=== PATIENT | male | born 1970 | race Caucasian/White ===

== ENCOUNTER 2024-12-21 06:24 | Emergency (ER) | payer BC, SELFPAY ==
--- OUTSIDE RECORDS SUMMARY | 2023-07-28 07:00 | XMS_ITS ---
Author Organization [employer] [facility] Address [address] [facility] [address] [place] [address] Care Team Providers Care Manager Transportation Planning Name Role Phone Huseyin Desouza MD Primary Care Provider Ryan Merchant Unavailable [phone] REASON FOR VISIT screening/5ft11 220 Encounters Encounter Location Date Provider Diagnosis [facility] [address] [place] [address] 07/28/2023 Ryan Jay Plan Of Treatment No Information Progress Notes * STANFORDAlberto CARRIONen ADOB: 2 (54 yo M)Acc No.[id number]:07/28/2023 Patient: Cesar RYAN Provider: Carline Jay M.D. :1970 A ge:53 Y S ex:Male Date:07/28/2023 Address:[address] [place], [place] [id number] Pcp:Huseyin Desouza MD Subjective: * Chief Complaints: * 1 . Screening/5ft11 220. * Medical History: Objective: * Vitals: Assessment: Plan: * Treatment: * * Electronic signature of Marilou Jay MD on 12/21/2024 at 07:56 AM CDT Sign off status: Pending * Provider: Carline Jay M.D. Date: 0 07/28/2023 Generated for Printi ng/Faxing/eTransmitting on: 1 07:56 AM CDT
--- NOTE | ~2024-12-21 | CT_ITS ---
EXAMINATION: CT abdomen pelvis w con DATE: 12/21/2024 07:33 INDICATION: Right upper quadrant abdominal pain. TECHNIQUE: Computed tomography (CT) of the abdomen and pelvis was performed with 100 mL Omnipaque 350 intravenous contrast. Automated exposure control and iterative reconstruction technique were employed. The dose-length product was 572.26 mGy-cm. COMPARISON: None. FINDINGS: The visualized portions of the lung bases demonstrate mild atelectasis. No pleural effusion. The heart size is normal. No pericardial effusion. The liver, gallbladder, spleen, pancreas, and right adrenal gland are normal. 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 The kidneys are normal. The prostate is moderately enlarged. There are no dilated loops of bowel. The appendix is not visualized. There are no pathologically enlarged lymph nodes. There is no free intraperitoneal fluid. There is internal fixation of left femur. There is plate and screw fixation of the pubic symphysis. There are changes of arthrodesis of right sacroiliac joint with a screw. There is mild thoracic and lumbar spondylosis. IMPRESSION: 1. No etiology for the patient's symptoms. Reviewed, dictated and finalized at location E.
--- NOTE | ~2024-12-21 | US_ITS ---
EXAMINATION: US abdomen limited DATE: 12/21/2024 08:59 INDICATION: Right upper quadrant abdominal pain TECHNIQUE: Multiple grayscale and Doppler ultrasound images of the abdomen were obtained. COMPARISON: None FINDINGS: The pancreatic head and body are normal in appearance. The pancreatic tail is not visualized. Liver has normal echogenicity and contour, with a smooth surface. No liver lesion identified. No intrahepatic biliary duct dilation suspected. Portal venous flow was seen in the hepatopetal, normal direction and has normal Doppler waveform. The gallbladder is normal in appearance. There is no cholelithiasis. The common bile duct measures 5 mm, which is normal. Sonographic Ricks sign was reported as negative by the pile driver engineer.Visualized portion of the right kidney demonstrates normal contour and echogenicity with no hydronephrosis. Visualized portion of the inferior vena cava is normal. IMPRESSION: 1. Normal right upper quadrant ultrasound. Reviewed, dictated and finalized at location A.
--- OUTSIDE RECORDS SUMMARY | 2024-12-21 06:26 | XMS_ITS | Patient Health Record ---
Author Organization [employer] Address [address] [facility]. [address] [place] [address] Care Team Providers Care Pig Machine Supervisor Name Role Phone Huseyin Desouza MD Primary Care Provider Unavailabl e Reason For Referral No Information Medications Medication SIG (Take, Route, Fr equency, Duration) Notes Start Date End Date Status Suflave 178.7 GM ML Orally twice a da y; Duration: 1 days 06/09/2023 Active Plan Of Treatment No Information Insurance Providers Payer Name Payer Address Payer Phone Subscriber Number Group Number Insured Name Patient Relationship to Insured Coverage Start Date Coverage End Date Blue Access Choice PPO [id number] [address] [place] [address] [id number] Cesar Menendez Self - patient is the insured
--- OUTSIDE RECORDS SUMMARY | 2024-12-21 06:26 | XMS_ITS | Clinical Summary ---
Author Organization [facility] Address [address] [place] [address] Phone Care Team Providers Care Documentation Analyst Name Role Phone Provider, Unknown Primary Care Provider Unavaila ble Allergies No known active allergies Medications lisinopril-hyd roCHLOROthiazi de (PRINZIDE, ZESTORETIC) 10-12.5 MG Tablet Take 1 Tab by mouth daily. 4 06/01/19 19 Active omeprazole (PRILOSEC) 40 MG CAPSULE DELAYED RELEASE TAKE 1 CAPSULE BY MOUTH EVERY DAY 4 05/05/19 19 Active DICLOFENAC SODIUM OP Place in affected eye(s). Active Cholecalcifero l (VITAMIN D PO) Take by mouth. Activ e Cyanocobalamin (VITAMIN B-12 PO) Take by mouth. Activ e Loratadine (CLARITIN PO) Take by mouth. A ctive KRILL OIL PO Take by mouth. Ac tive Aspirin 81 MG Tablet Take 81 mg by mouth daily. Active tadalafil (CIALIS) 10 MG Tablet Take 10 mg by mouth as needed. Active testosterone cypionate (DEPO-TESTOSTE FABIÁN) 200 MG/ML Solution INJECT 1 ML INTRAMUSCULARLY ONCE WEEKLY 0 05/17/19 19 Active pantoprazole (Protonix) 40 MG Tablet Delayed Response Take 40 mg by mouth daily. Active Ascorbic Acid (VITAMIN C PO) Take by mouth. Active Active Problems No known active problems Social History Tobacco Use Types Packs/Day Years Used Date Smoking Tobacco: Never Smokeless Tobacco: Never Tobacco Cessation:Counseling Given: Not Answered Alcohol Use Standard Drinks/Week Comments Yes 0 (1 standard drink = 0.6 oz pur e alcohol) AUDIT-C Answer Date Recorded Frequency of Alcohol Consumption Never 06/11/2018 Average Number of Drinks Not on file 019 Frequency of Binge Drinking Not on file 05/24 Sexually Active Control Partners Comments Yes Sex and Gender Information Value Date Recorded Sex Assigned at Not on file Legal Sex Male 7:33 PM CDT Gender Identity Not on file Sexual Orientation Not on file Last Filed Vital Signs Vital Sign Reading Time Taken Comments Blood Pressure 136/82 11/14/2023 8:46 AM CDT Pulse 95 11/14/2023 8:46 AM CDT Temperature 37.2 C (99 F) 11/14/2023 8:46 AM CDT Respiratory Rate 14 11/14/2023 8:46 AM CDT Oxygen Saturation 98% 11/14/2023 8:46 AM CDT Inhaled Oxygen Concentration - - Weight 95.3 kg (210 lb) 06/11/2018 11:56 AM CDT Height - - Body Mass Index - - Plan of Treatment Health Maintenance Due Date Last Done Comments Hepatitis C Virus (HCV) Screening 1970 Hepatitis B Immunization (1 of 3 - 19+ 3-dose series) 05/02/1990 Cologuard 05/02/2016 Colonoscopy 05/02/2016 Colorectal Cancer Screening 05/02/2016 Immunochemical Fecal Occult Blood 05/02/2016 Pneumococcal Immunization (50+ years) (1 of 1 - PCV) 05/02/2021 Zoster Immunization (1 of 2) 05/02/2021 Influenza Immunization (#1) 2024 10/0 04/2022, 11/22/2019, 12/02/2015, Additional history exists SARS-COV-2 Immunization ( season) 2024 01/13/2023, 01/11/2021, 05/09/2020, Additional history exists Respiratory Syncytial Virus (RSV) Immunization (Adult) (1 - 1-dose 75+ series) 05/02/2046 DTaP/Tdap/Td Immunization Discontinued 05/12/2021 TdaP Immunization Completed 05/12/2021 Human Papillomavirus (HPV) Immunization Aged Out No longer eligible based on patient's age to complete this topic Meningococcal Immunization (ACWY) Aged Out No longer eligible based on patient's age to complete this topic Rotavirus Immunization Aged Out No lo nger eligible based on patient's age to complete this topic Insurance [facility] Care Teams Documentation Analyst Relationship Specialty Start Date End Date Provider, Unknown UNKNOWN PCP - General 06/11/18
[2024-12-21 06:27] VITALS: BP 158/95; PULSE 79; RESP 18; TEMP 36.8; O2SAT 97
[2024-12-21 06:30] VITALS: BP 158/95; PULSE 88; RESP 18; TEMP 36.8; O2SAT 95
[2024-12-21 06:49] LABS: Hematocrit 53.6 % (42.0-52.0); Hemoglobin 18.3 g/dL (14.0-18.0); Immature Granulocyte Percent A 0.5 % (0-0.5); Lymphocytes Absolute Auto 1.66 K/mm3 (0.9-3.2); Mean Corpuscular HGB Conc 34.1 g/dl (32-36); Mean Corpuscular Hemoglobin 30.0 pg (26-34); Mean Corpuscular Volume 88.0 fl (80-100); Nucleated Red Blood Cells Absolute Auto 0.000 K/mm3 (0.0-0.012); Nucleated Red Blood Cells Perc 0.0 % (0.0-0.2); Platelet Count Result 217 k/mm3 (150-375); Red Blood Count 6.09 M/mm3 (4.6-6.20); White Blood Count 6.3 K/mm3 (4.5-10.0)
[2024-12-21 06:54] LABS: Add Urine Microscopic? YES; Appearance Urine Clear (Clear); Glucose Urine UA Negative (Negative); Leukocyte Esterase Ur Negative LEU/UL (Negative); Nitrate Urine Negative (Negative); Non Pathogenic Casts 0-2; Specific Grav Ur 1.024 (1.001-1.035)
[2024-12-21 06:57] LABS: Alanine Aminotransferase 49 U/L (6-50); Albumin Level 4.5 g/dL (3.5-5.1); Alkaline Phosphatase 69 U/L (38-126); Anion Gap 6 mmol/L (4-12); Aspartate Amino Transferase 45 U/L (17-59); Bilirubin,Total 0.9 mg/dL (0.2-1.3); Blood Urea Nitrogen 22 mg/dL (9-20); Calcium 9.2 mg/dL (8.4-10.2); Carbon Dioxide 29 mmol/L (22-30); Chloride 98 mmol/L (98-107); Estimated CRCL calculation 91 ml/min; Estimated Glomerular Filt Rate > 60; Glucose 114 mg/dL (65-110); Lipase 265 U/L (23-300); Potassium 3.9 mmol/L (3.4-5.0); Sodium 133 mmol/L (137-145); Total Protein 7.8 g/dL (6.3-8.2)
[2024-12-21 07:01] VITALS: BP 159/99; PULSE 72; RESP 14; O2SAT 96
[2024-12-21 07:39] VITALS: BP 164/93; PULSE 79; PULSE 86; RESP 16; RESP 17; O2SAT 94
--- OUTSIDE RECORDS SUMMARY | 2024-12-21 07:56 | XMS_ITS | Encounter Summary ---
Author Organization [facility] Address [address] [place] [address] Care Team Providers Care Sanitary Engineer Name Role Phone Taran Mock MD Primary Care Provider [phone] Huseyin Desouza MD Primary Care Provider [phone] Encounter Details Date Type Department Care Team (Late st Contact Info) Description 05/12/2021 Ophth Exam [facility] [address] [facility], [place] [id number] [phone] Jing Shaw MD [facility] [id number] [phone] Social History Tobacco Use Types Packs/Day Years Used Date Smoking Tobacco: Never Assessed AUDIT-C Answer Date Recorded Q1: How often do you have a drink containing alc ohol? 2-3 times a week 05/12/2021 Q2: How many drinks containi ng alcohol do you have on a typical day when you are drinking? 5 or 6 05/12/2021 Frequency of Binge Drinking Not on file 04/23 Sex and Gender Information Value Date Recorded Sex Assigned at Not on file Legal Sex Male 3:37 PM CDT Gender Identity Not on file Sexual Orientation Not on file documented as of this encounter Functional Status * Functional and Cognitive Status Question Answer Date of Assessment Author Is person deaf or have ev us hearing difficulty? No 05/13/2021 7:10 AM CDT Matthew Ochoa RN Is person blind or have seri ous difficulty seeing? No 05/13/2021 7:10 AM Matthew Jessica RN Does person have serious difficulty walking/climbing stairs? No 05/13/2021 7:10 AM Matthew Jessica RN Does person have difficulty dressing/bathing? No 05/13/2021 7:10 AM Matthew Jessica RN Does person have difficulty doing errands alone? No 05/13/2021 7:10 AM Matthew Jessica RN Does person have difficulty concentrating/remembering/making decisions? No 05/13/2021 7:10 AM Matthew Jessica RN * Question Answer Date of Assessment Author Q1: How often do you have a drink containing alcohol? 2-3 times a week 05/12/2021 8:08 PM Geneva Quintero RN Q2: How many drinks containing alcohol do you have on a typical day when you are drinking? 5 or 6 05/12/2021 8:08 PM Geneva Quintero RN documented as of this encounter Plan of Treatment Not on file documented as of this encounter Visit Diagnoses Not on filedocumented in this encounter Care Teams Sanitary Engineer Relationship Specialty Start Date End Date Taran Mock MD [address] [place] [address] PCP - General Family Medicine 06/13/21 02/18/23 Huseyin Desouza MD [address] [place] [address] PCP - General Family Medicine 02/19/23 documented as of this encounter
--- OUTSIDE RECORDS SUMMARY | 2024-12-21 07:56 | XMS_ITS | Clinical Summary ---
Author Organization [facility] Address [address] [facility] [place] [address] Care Team Providers Care Cost Accounting Clerk Name Role Phone Huseyin Desouza MD Primary Care Provider [phone] Source Comments [facility],non-owned Affiliates and Associated Physician Practices is amultiple site organization consisting of ambulatory clinics and hospital sitesin [place], [place], [place] and [place]. This disclosure is being madepursuant to the Care Everywhere program and may not contain all information available regarding this patient. Last updated 17.[facility] Allergies No known active allergies Medications * Be aware that medications may not be up to date on this document. Alwaysverify current medications with the patient. lisinopril-hydr oCHLOROthiazide (PRINZIDE; ZESTORETIC) 10-12.5 MG tablet Take 1 (one) tablet by mouth once daily Active loratadine (CLARITIN) 10 MG tablet Take 1 (one) tablet by mouth once daily Active aspirin (ASPIRIN) 81 MG chew tablet Take 1 (one) tablet by mouth once daily Active testosterone cypionate (DEPO-TESTOSTER ONE) 200 MG/ML injection Inject 1 mL into muscle every Wednesday06/21/2021 Active vitamin D3 (CHOLECALCIFERO L) 10 MCG (400 UNIT) tablet Active pantoprazole EC (PROTONIX) 40 MG tablet Take 1 (one) tablet by mouth 2 times daily 07/07/2021 Active B-D 3CC LUER-JACQUES SYR 23GX1 23G X 1 3 ML MISC TAKE 1 SYRINGE TWICE A WEEK FOR 12 WEEK(S) 05/07/2021 Active sildenafil (REVATIO) 20 MG tablet TAKE UP TO 5 TABLETS DAILY 1 HOUR PRIOR TO SEXUAL INTERCOURSE. 02/27/2021 Active Acetaminophen Extra Strength 500 MG TABS as needed 11/26/2021 Active Ascorbic Acid 1000 MG Take 1 (one) tablet by mouth once daily Active ALPRAZolam (Xanax) 0.5 MG tablet Take 1 (one) tablet by mouth 2 times daily as needed for Anxiety or Insomnia 01/30/2022 Active HYDROcodone-dedrick taminophen ([place]) 5-325 MG tabletIndicatio ns:History of recent fall Take 1 (one) tablet by mouth every 6 hours as needed for Pain 20 tablet 01/17/2024 Active polyethylene glycol 3350 (Miralax) 17 GM/SCOOP powder Take 17 (seventeen) g by mouth once daily 238 g 01/17/2024 Active docusate sodium (Colace) 100 MG capsule Take 1 (one) capsule by mouth once daily 01/17/2024 Active Active Problems Problem Noted Date Diagnosed Date Orbital wall fracture 05/19/2021 ABLA (acute blood loss anemia) 05/15/2021 Trauma 05/12/2021 Open dislocation of left wrist 05/12/2021 Contusion of both lungs 05/12/2021 Other fracture of left femur , initial encounter for closed fracture 05/12/2021 Unspecified injury of ulnar artery at forearm level, left arm, initial encounter 05/12/2021 History of recent fall 04/22/2021 Overview (08/14/2021): Trauma/ fall from 25 ft foot lift Closed displaced subtrochanteric fracture of lef t femur Traumatic separation of pubic symphysis Open wound of right knee Dislocation of left wrist Type III open fracture of di stal end of left radius and ulna Complete disruption of pelvic ring Abscess of bursa of left wrist Retained orthopedic hardware Immunizations Immunization Administration Dates Next Due TDAP (7yrs+) 05/12/2021 Social History Tobacco Use Types Packs/Day Years Used Date Smoking Tobacco: Former Cigarettes 0.5 13 1 986 - 1998 Smokeless Tobacco: Never Tobacco Cessation:Counseling Given: Not Answered Alcohol Use Standard Drinks/Week Comments Yes 4 (1 standard drink = 0.6 oz pur e alcohol) 2-3x per week AUDIT-C Answer Date Recorded Q1: How often do you have a drink containing alc ohol? 2-3 times a week 01/17/2024 Q2: How many drinks containi ng alcohol do you have on a typical day when you are drinking? 3 or 4 01/17/2024 Q3: How often do you have si x or more drinks on one occasion? Never 01/17/2024 PHQ-2 Answer Date Recorded Patient Health Questionnaire-2 Score 1 12/07/2023 Sex and Gender Information Value Date Recorded Sex Assigned at Not on file Legal Sex Male 3:37 PM CDT Gender Identity Not on file Sexual Orientation Not on file Last Filed Vital Signs Vital Sign Reading Time Taken Comments Blood Pressure 125/90 01/17/2024 9:38 AM SYSTEMS DEVELOPMENT CONSULTANT Pulse 82 01/17/2024 9:38 AM SYSTEMS DEVELOPMENT CONSULTANT Temperature 36 C (96.8 F) 01/17/2024 9:05 AM SYSTEMS DEVELOPMENT CONSULTANT Respiratory Rate 9 01/17/2024 9:38 AM SYSTEMS DEVELOPMENT CONSULTANT Oxygen Saturation 94% 01/17/2024 9:38 AM SYSTEMS DEVELOPMENT CONSULTANT Inhaled Oxygen Concentration 100% 06/08/2021 9 :20 AM CDT Weight 99.2 kg (218 lb 12.8 oz) 01/17/2024 5:44 AM SYSTEMS DEVELOPMENT CONSULTANT Height 180.3 cm (5' 11) 01/17/2024 5:44 AM SYSTEMS DEVELOPMENT CONSULTANT Body Mass Index 30.52 01/17/2024 5:44 AM SYSTEMS DEVELOPMENT CONSULTANT Plan of Treatment Health Maintenance Due Date Last Done Comments COLOGUARD (AGES 45-75) - COLON CA SCREENING 1970 COLON MONITORING 1971 COLONOSCOPY - COLON CA SCREENING 1971 CT COLONOGRAPHY - COLON CA SCREENING 1970 Colorectal Cancer Screening 1971 FIT - COLON CA SCREENING 1971 FLEX SIG - COLON CA SCREENING 1971 LIPID TESTING 1971 HIV SCREENING 05/02/1986 HEPATITIS C SCREENING 04/28/1989 HEPATITIS B VACCINE (1 of 3 - 19+ 3-dose series) 05/02/1990 PNEUMOCOCCAL VACCINE 50+ (1 of 1 - PCV) 05/02/2021 ZOSTER VACCINE (1 of 2) 05/02/2021 DEPRESSION SCREENING 02/23/2024 04/27/2023, 07/29/19 22 COVID-19 VACCINE (5 - 2024-26 season) 2024 01/13/2023, 01/11/2021, 05/09/2020, Additional history exists INFLUENZA VACCINE (#1) 2024 3, 11/22/2019, 12/02/2015, Additional history exists SCREENING FOR DIABETES 02/19/2026 3, 07/28/2021, 06/13/2021, Additional history exists DTAP/TDAP/TD VACCINES (2 - Td or Tdap) 05/13/2031 05/12/2021 HIB VACCINE Aged Out No longer eligi ble based on patient's age to complete this topic HPV VACCINE Aged Out No longer eligi ble based on patient's age to complete this topic MENINGOCOCCAL (Group B) VACCINE SHARED DECISION-MAKING Aged Out No longer eligible based on patient's age to complete this topic MENINGOCOCCAL GROUPS A/C/Y/W VACCINE Aged Out No longer eligible based on patient's age to complete this topic Medical Devices Implanted Type Area Accounting Representative Device Identifier Shelf Expiration Date Model / Serial / Lot Graft Tissue Avance Nrv 70mm Algrf 4-5mm Implanted:Qty: 1 on 05/13/2021 by Kamla Bryant MD at [facility] Left: Wrist [employer] Inc 05/23/2023 [id number] / / Prtc 7mm Axoguard Tissue 40mm Prcn Xclr Implanted:Qty: 1 on 05/13/2021 by Kamla Bryant MD at [facility] Left: Wrist [employer] 12/14/2021 [id number] / / Nail Im 9mm 42cm Versanail Fem Troch Lt Implanted:Qty: 1 on 05/14/2021 by Mark Morris DO at [facility] Left: Femur [employer]ena [employer] 09/22/2022 0 / / [id number] Screw 6.5mm 90mm Ft Slf-Tap Sld Drv End Implanted:Qty: 1 on 05/14/2021 by Mark Morris DO at [facility] Left: Femur [employer] [id number] / / Screw 6.5mm 100mm Ft Slf-Tap Sld Drv End Implanted:Qty: 1 on 05/14/2021 by Mark Morris, at [facility] Left: Femur [employer] [id number] / / Screw 4.5mm 40mm Oblq Ft Slf-Tap Sld 2 Implanted:Qty: 1 on 05/14/2021 by Mark Morris, at [facility] Left: Femur [employer] [id number] / / Screw 4.5mm 46mm Oblq Ft Slf-Tap Sld 2 Implanted:Qty: 1 on 05/14/2021 by Mark Morris DO at [facility] Left: Femur [employer] [id number] / / Screw 4.5mm 50mm Ft Sld Slf-Tap Hip Fem Implanted:Qty: 1 on 05/14/2021 by Mark Morris DO at [facility] Left: Femur [employer] [id number] / / 6 Hole Dcp 3.5mm Plate 78mm Implanted:Qty: 1 on 05/14/2021 by Mark Morris DO at [facility] Left: Pelvis Synthes Usa 02.100.016 / / Screw 3.5mm 6mm 32mm 2.5mm Ft Slf-Tap Implanted:Qty: 2 on 05/14/2021 by Mark Morris DO at [facility] Left: Pelvis [employer] Usa 204.832 / / Screw 3.5mm 6mm 45mm Ft Cortx Slf-Tap Sm Implanted:Qty: 1 on 05/14/2021 by Mark Morris DO at [facility] Left: Pelvis [employer] Usa 204.845 / / Screw 3.5mm 6mm 55mm 2.5mm Ft Slf-Tap Implanted:Qty: 2 on 05/14/2021 by Mark Morris DO at [facility] Left: Pelvis [employer] Usa 204.855 / / Screw 3.5mm 6mm 65mm 2.5mm Ft Slf-Tap Implanted:Qty: 1 on 05/14/2021 by Mark Morris DO at [facility] Left: Pelvis [employer] Usa 204.865 / / Screw 7.3mm 8.2mm 2.9mm 90mm P/T Rvrs Implanted:Qty: 1 on 05/14/2021 by Mark Morris DO at [facility] Left: Pelvis [employer] Usa 209.890 / / Mtrx Tissue Micromatrix Prcn Bldr - [id number] Implanted:Qty: 1 on 06/12/2021 by Mark Morris DO at [facility] Left: Wrist [employer]Cell Inc 06/21/2022 [id number] / [id number] / [id number] Graft Prcn 5.9x3.9in Xenmatrix Ab Rect Implanted:Qty: 1 on 06/12/2021 by Mark Morris DO at [facility] Left: Wrist [employer]ol Inc 04/21/2022 [id number] / / [id number] Cutal Wound Matrix 3-Layer Implanted:Qty: 1 on 06/12/2021 by Mark Morris DO at [facility] Left: Wrist [employer] Inc 12/22/2022 [id number] / [id number] / [id number] Gft Skn Cytal L10 Cm X W7 Cm Fnstrt Mtrx Implanted:Qty: 1 on 06/12/2021 by Mark Morris DO at [facility] Left: Wrist Integra [employer]iences 09/21/2022 [id number] / / [id number] Screw 4.5mm 8mm 50mm Cortx Slf-Tap Lg Implanted:Qty: 1 on 03/05/2023 by Mark Morris DO at [facility] Left: Femur Synthes Usa 214.850 / / Screw 4.5mm 8mm 52mm Cortx Slf-Tap Lg Implanted:Qty: 1 on 03/05/2023 by Mark Morris DO at [facility] Left: Femur [employer]ynthes Usa 214.852 / / Explanted Type Area Accounting Representative Device Identifier Shelf Expiration Date Model / Serial / Lot Gd Pin Orth 14in 3.2mm [address] Versanail Explanted:Qty: 1 on 05/14/2021 by Mark Morris DO at [facility] Left: Femur [employer] [id number] DUPLICATE / / Description:SUPPLY NOT AN IM PLANT Wire K 2mm 228mm Troc Pnt Ss Prlc Plate Explanted:Qty: 1 on 05/14/2021 by Mark Morris, DO at [facility] Left: Pelvis [employer] [id number] / / Wire K 1.6mm 150mm Troc Pnt Ss Fx Strl Explanted:Qty: 2 on 06/04/2021 by Mark Morris, DO at [facility] Left: Wrist [employer] [id number] / / Bar Extfix 100mm 6mm Jtx Cfbr Nonster Implanted:Qty: 2 on 05/12/2021 by Mark Morris, DO at [facility] Explanted:Qty: 2 on 08/18/2021 by Mark Morris, DO at [facility] Left: Wrist [employer] [id number] / / Clamp Extfix Jtx 6mm 4mm Mini Mri Safe Implanted:Qty: 3 on 05/12/2021 by Mark oMrris, DO at [facility] Explanted:Qty: 3 on 08/18/2021 by Mark Morris, DO at [facility] Left: Wrist [employer] [id number] / / Clamp Extfix 6/10.5mm Jtx 6mm Std Bar To Implanted:Qty: 1 on 05/12/2021 by Mark Morris, DO at [facility] Explanted:Qty: 1 on 08/18/2021 by Mark Morris, DO at [facility] Left: Wrist [employer] [id number] / / Bar Extfix 150mm 6mm Jtx Cfbr Nonster Implanted:Qty: 1 on 05/12/2021 by Mark Morris DO at [facility] Explanted:Qty: 1 on 08/18/2021 by Mark Morris, DO at [facility] Left: Wrist [employer] [id number] / / Bar Extfix 225mm 6mm Jtx Cfbr Nonster Implanted:Qty: 1 on 05/12/2021 by Mark Morris DO at [facility] Explanted:Qty: 1 on 08/18/2021 by Mark Morris, DO at [facility] Left: Wrist [employer] [id number] / / Pin Hlf 15mm 3mm Jtx Shrt Ti Ntrd Extfix Implanted:Qty: 2 on 05/12/2021 by Mark Morris, DO at [facility] Explanted:Qty: 2 on 08/18/2021 by Mark Morris DO at [facility] Left: Wrist [employer] [id number] / / Pin Hlf 25mm 3mm Jtx Shrt Orth Ti Ntrd Implanted:Qty: 2 on 05/12/2021 by Mark Morris DO at [facility] Explanted:Qty: 2 on 08/18/2021 by Mark Morris DO at [facility] Left: Wrist [employer] [id number] / / Procedures Procedure Name Priority Date/Time Associated Diagnosis Comments BASIC METABOLIC PANEL (CALCIUM TOTAL) Routine 02/19/2023 10:20 AM SYSTEMS DEVELOPMENT CONSULTANT Retained orthopedic hardware from Last 3 Months or Most Recently Relevant to Health Maintenance Results * (ABNORMAL) BASIC METABOLIC PANEL (CALCIUM TOTAL) (02/19/2023 10:20 AM SYSTEMS DEVELOPMENT CONSULTANT) BUN 14 7 - 26 mg/dL 02/19/2023 11:05 AM [facility] Creatinine 1.05 0.71 - 1.16 mg/dL 02/19/2023 11:05 AM [facility] Sodium 136 136 - 145 mmol/L 02/19/2023 11:05 AM [facility] Potassium 4.0 3.5 - 4.5 mmol/L 02/19/2023 11:05 AM [facility] Chloride 100 98 - 107 mmol/L 02/19/2023 11:05 AM [facility] CO2 25 22 - 29 mmol/L 02/19/2023 11:05 AM [facility] Glucose 98 70 - 115 mg/dL 02/19/2023 11:05 AM [facility] Calcium 9.3 8.4 - 10.2 mg/dL 02/19/2023 11:05 AM [facility] Anion Gap 11 6 - 16 02/19/2023 11:05 AM [facility] BUN/Creatinine Ratio 13 7 - 23 02/19/2023 11:05 AM [facility] Osmolality Calculated 282 275 - 295 mOsm/kg 02/19/2023 11:05 AM [facility] eGFR by CKD-EPI 86(L) >=90 mL/min/1.7 3 m2 02/19/2023 11:05 AM [facility] Blood BLOOD SPECIMEN / Unknown Lab Venipuncture / Unknown 02/19/2023 10:20 AM SYSTEMS DEVELOPMENT CONSULTANT 02/19/2023 10:34 AM [facility] Mark Morris DO LAB - CHEMISTRY ORDERABLES Fin al Result [facility] [address] [place] [address] [phone] from Last 3 Months or Most Recently Relevant to Health Maintenance Insurance [employer] * Guarantor: [id number] Account Type Relation to Patient Date of Phone Billing Address Workers Comp Employer Advance Directives * Full Code (Latest Code Status on File) Date Activated Date Inactivated Comments 05/12/2021 9:51 PM 06/16/2021 6:23 PM Care Teams Cost Accounting Clerk Relationship Specialty Start Date End Date Huseyin Desouza MD [address] [place] [address] PCP - General Family Medicine 02/19/23
--- OUTSIDE RECORDS SUMMARY | 2024-12-21 07:56 | XMS_ITS | Clinical Summary ---
Author Organization [facility] Address [facility] [place] [address] Care Team Providers Care Dipper And Drier Name Role Phone Taran Mock MD Primary Care Provider [phone] Allergies No known active allergies Medications aspirin 81 mg chewable tabletIndications: Pain,prevention of thrombosis Take 81 mg by mouth every morning Active cholecalciferol (VITAMIN D-3) 400 unit capsuleIndications :supplement Take 400 Units by mouth every morning Active krill oil 500 mg capsule Take by mouth Active lisinopril-hydroCH LOROthiazide (ZESTORETIC) 10-12.5 mg per tabletIndications: hypertension Take 1 tablet by mouth every morning 9 Active loratadine (CLARITIN) 10 mg tabletIndications: Allergic Rhinitis Take 10 mg by mouth every morning Active sildenafiL, pulm.hypertension, (REVATIO) 20 mg tabletIndications: ED. Take 20 mg by mouth as needed 2 Active BD Luer-Caitlin Syringe 3 mL 23 x 1 syringe TAKE 1 SYRINGE TWICE A WEEK FOR 12 WEEK(S) 2 Active tadalafiL (ADCIRCA) 10 mg tabletIndications: Erectile Dysfunction Take 10 mg by mouth as needed Active testosterone cypionate (DEPO-TESTOTERONE) 200 mg/mL injectionIndicatio ns:Androgen Deficiency Inject 200 mg into the muscle as instructed once a week Every Wednesday 9 Active calcium carbonate (CALCIUM 600 ORAL)Indications:S upplement Take 600 mg by mouth every morning Active oxyCODONE (ROXICODONE) 5 mg immediate release tabletIndications: Pain Take 1 tablet (5 mg total) by mouth every 4 (four) hours as needed (breakthrough pain) 20 tablet 2 Active acetaminophen 500 mg capsuleIndications :Pain Take 2 capsules (1,000 mg total) by mouth every 6 (six) hours as needed for pain 60 tablet 2 Active ondansetron ODT (ZOFRAN-ODT) 4 mg disintegrating tabletIndications: nausea and vomiting Take 1 tablet (4 mg total) by mouth every 6 (six) hours as needed for nausea or vomiting 20 tablet 2 Active ibuprofen (ADVIL,MOTRIN) 800 mg tablet Take 1 tablet (800 mg total) by mouth every 6 (six) hours as needed for pain 60 tablet 2 Active Active Problems Problem Noted Date Diagnosed Date Ulnar nerve damage, left, initial encounter 05/2021 Abscess of bursa of left wrist 11/17/2021 Complete disruption of pelvic ring 11/17/2021 Open wound of right knee 11/17/2021 Retained orthopedic hardware 11/17/2021 Traumatic separation of pubic symphysis 11/18/19 Type III open fracture of di stal end of left radius and ulna 11/17/2021 Injury of left ulnar nerve 10/15/2021 Overview (10/15/2021): Added automatically from request for surgery [id number] Bone infection of knee 06/16/2021 Orbital wall fracture 05/19/2021 ABLA (acute blood loss anemia) 05/15/2021 Contusion of both lungs 05/12/2021 Open dislocation of left wrist 05/12/2021 Other fracture of left femur , initial encounter for closed fracture 05/12/2021 Trauma 05/12/2021 Unspecified injury of ulnar artery at forearm level, left arm, initial encounter 05/12/2021 Immunizations Immunization Administration Dates Next Due Influenza, Quadrivalent, Split, Intramuscular Influenza, Quadrivalent, Spl it, Preservative Free, Intramuscular 11/22/2019 Influenza, Trivalent, IM (MDV) 12/05/2014 Tdap 05/12/2021 Surgical History Surgery Date Site/Laterality Comments APPENDECTOMY BICEPS TENDON REPAIR Right FRACTURE SURGERY PORT PLACEMENT CHEST >5 YEARS 05/29/2021 N/A Medical History Medical History Date Comments Hard to intubate Lip got folded over with ETT. Later used a size 5 LMA which caused sore throat. After switching to size 4 LMA no trouble.Patient easily intubated with video laryngoscopy, obtaining a grade 1 view. Per patient he was previously marked difficult due to a damaged lip after intubation and a severe sore throat when using an LMA 5. He denies any history of being difficult to secure airway. GERD (gastroesophageal reflux disease) Family History Medical History Relation Name Comments Heart failure Father Anesthesia problems Neg Hx Relation Name Status Comments Father Social History Tobacco Use Types Packs/Day Years Used Date Smoking Tobacco: Former Cigarettes Q uit: 1998 Passive Smoke Exposure: Past Smokeless Tobacco: Never Tobacco Cessation:Counseling Given: Not Answered AUDIT-C Answer Date Recorded Q1: How often do you have a drink containing alcohol? 4 or more times a week 11/25/2021 Q2: How many drinks containi ng alcohol do you have on a typical day when you are drinking? 1 or 2 Q3: How often do you have si x or more drinks on one occasion? 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 Gender Identity Not on file Sexual Orientation Not on file Obstetrics History Last Filed Vital Signs Vital Sign Reading Time Taken Comments Blood Pressure 155/92 11/26/2021 8:30 AM CDT Pulse 89 11/26/2021 8:30 AM CDT Temperature 36.7 C (98.1 F) 11/26/2021 8:30 AM CDT Respiratory Rate 18 11/26/2021 8:30 AM CDT Oxygen Saturation 100% 11/26/2021 8:30 AM CDT Inhaled Oxygen Concentration - - Weight 98.9 kg (218 lb) 11/25/2021 7:52 AM CDT Height 180.3 cm (5' 11) 11/25/2021 7:52 AM CDT Body Mass Index 30.4 11/25/2021 7:52 AM CDT Plan of Treatment Health Maintenance Due Date Last Done Comments Colon Cancer Screening-Colonoscopy 1971 Depression Screening 1971 Hepatitis C Screening 1971 Prostate Cancer Screening-PSA 1971 Hepatitis B Screening 05/02/1989 Regular Well Visit/Exam 18-64 05/02/1989 Zoster Vaccine (1 of 2) 05/02/2021 Covid-19 Vaccine (4 - 2024-2 6 season) 2024 01/11/2021, 05/09/2020, 04/18/2020 Influenza Vaccine (#1) 2024 , 12/02/2015, 12/05/2014 DTaP/Tdap/Td Vaccine (2 - Td or Tdap) 05/13/2031 05/12/2021 Pneumococcal vaccine <65 Aged Out No longer eligible based on patient's age to complete this topic Insurance [employer] Advance Directives For more information, please contact: [phone] * Full Code (Latest Code Status on File) Date Activated Date Inactivated Comments 11/25/2021 6:49 PM 11/26/2021 3:11 PM Care Teams Dipper And Drier Relationship Specialty Start Date End Date Taran Mock MD [address] [place] [address] PCP - General Family Medicine 09/22/21
--- OUTSIDE RECORDS SUMMARY | 2024-12-21 07:56 | XMS_ITS | Encounter Summary ---
Author Organization [facility] Address [address] [place] [address] Care Team Providers Care Military Communications Specialist Name Role Phone Taran Mock MD Primary Care Provider [phone] Huseyin Desouza MD Primary Care Provider [phone] Encounter Details Date Type Department Care Team (Late st Contact Info) Description 05/13/2021 Ophth Exam [facility] [address] [place] [address], [place] [address] Kobe Lawrence MD [address] [place] [address] [place] [address] Social History Tobacco Use Types Packs/Day Years Used Date Smoking Tobacco: Never Smokeless Tobacco: Never AUDIT-C Answer Date Recorded Q1: How often [...] doing errands alone? No 05/13/2021 7:10 AM FUNMILAYOT Matthew Ochoa RN Does person have difficulty concentrating/remembering/making decisions? No 05/13/2021 7:10 AM FUNMILAYOT Matthew Ochoa RN * Is person deaf or have serious hearing difficulty? Answer Date of Assessment Author No 05/13/2021 7:10 AM Jenni Jessica RN * Is person blind or have serious difficulty seeing? Answer Date of Assessment Author No 05/13/2021 7:10 AM Jenni Jessica RN * Does person have serious difficulty walking/climbing stairs? Answer Date of Assessment Author No 05/13/2021 7:10 AM CDJenni Wisdom RN * Does person have difficulty dressing/bathing? Answer Date of Assessment Author No 05/13/2021 7:10 AM Jenni Jessica RN * Does person have difficulty doing errands alone? Answer Date of Assessment Author No 05/13/2021 7:10 AM Jenni Jessica RN documented as of this encounter Mental Status * Does person have difficulty concentrating/remembering/making decisions? Answer Entry Date Author No 05/13/2021 7:10 AM Jenni Jessica RN documented in this encounter Plan of Treatment Not on file documented as of this encounter Visit Diagnoses Not on filedocumented in this encounter Care Teams Military Communications Specialist Relationship Specialty Start Date End Date Taran Mock MD [address] [place] [address] PCP - General Family Medicine 06/13/21 02/18/23 Huseyin Desouza MD [address] [place] [address] PCP - General Family Medicine 02/19/23 documented as of this encounter
--- OUTSIDE RECORDS SUMMARY | 2024-12-21 07:56 | XMS_ITS | Encounter Summary ---
Author Organization [facility] Address [address] [place] [address] Care Team Providers Care Senior Process Analyst Name Role Phone Taran Mock MD Primary Care Provider [phone] Huseyin Desouza MD Primary Care Provider [phone] Reason for Visit * Reason Onset Date Comments General 07/29/2021 Encounter Details Date Type Department Care Team (Late st Contact Info) Description 07/29/2021 Telephone [facility] [address] [facility] [place] [id number] Tiffany Sullivan MD [address] [place] [address] General Social History Tobacco Use Types Packs/Day Years Used Date Smoking Tobacco: Never Smokeless Tobacco: Never Alcohol Use Standard Drinks/Week Comments Yes 4 (1 standard drink = 0.6 oz pur e alcohol) AUDIT-C Answer Date Recorded Q1: How often do you have a drink containing alc ohol? 2-3 times a week 05/12/2021 Q2: How many drinks containi ng alcohol do you have on a typical day when you are drinking? 5 or 6 05/12/2021 Frequency of Binge Drinking Not on file 04/23 PHQ-2 Answer Date Recorded PHQ2 TOTAL SCORE 0 07/28/2021 Sex and Gender Information Value Date Recorded Sex Assigned at Not on file Legal Sex Male 3:37 PM CDT Gender Identity Not on file Sexual Orientation Not on file documented as of this encounter Functional Status * Is person deaf or have serious hearing difficulty? Answer Date of Assessment Author No 05/13/2021 7:10 AM CDT Jenni Ochoa RN * Is person blind or have serious difficulty seeing? Answer Date of Assessment Author No 05/13/2021 7:10 AM CDT Jenni Ochoa RN * Does person have serious difficulty walking/climbing stairs? Answer Date of Assessment Author No 05/13/2021 7:10 AM CDT Jenni Ochoa RN * Does person have difficulty dressing/bathing? Answer Date of Assessment Author No 05/13/2021 7:10 AM CDT Jenni Ochoa RN * Does person have difficulty doing errands alone? Answer Date of Assessment Author No 05/13/2021 7:10 AM CDT Jenni Ochoa RN documented as of this encounter Mental Status * Does person have difficulty concentrating/remembering/making decisions? Answer Entry Date Author No 05/13/2021 7:10 AM CDT Jenni Ochoa RN documented in this encounter Miscellaneous Notes * Telephone Encounter - Claudia Schroeder - 07/29/2021 2:58 PM CDT Received a phone call regarding pt. PICC line wondering if our office received the results on his labs. He is also very ferrous wanting to know why is he continuing to take antibiotics? And if it's ok to have home health aid take out his PICC line at home ? Please advise pt. , Thank you . documented in this encounter Plan of Treatment Not on file documented as of this encounter Visit Diagnoses Not on filedocumented in this encounter Care Teams Senior Process Analyst Relationship Specialty Start Date End Date Taran Mock MD [address] [place] [address] PCP - General Family Medicine 06/13/21 02/18/23 Huseyin Desouza MD [address] [place] [address] PCP - General Family Medicine 02/19/23 documented as of this encounter
--- OUTSIDE RECORDS SUMMARY | 2024-12-21 07:56 | XMS_ITS | Clinical Summary ---
Author Organization [facility] Address [address] [place] [address] Phone Care Team Providers Care Wellness Nurse Name Role Phone Provider, Unknown Primary Care [...] patient's age to complete this topic Insurance [facility] Care Teams Wellness Nurse Relationship Specialty Start Date End Date Provider, Unknown UNKNOWN PCP - General 06/11/18
--- NOTE | 2024-12-21 08:12 | ED_ITS ---
HPI - Abdominal Pain General Chief Complaint: Abdominal Pain Stated Complaint: RUQ abd pain Time Seen by Provider: 12/21/24 07:06 Source: patient Mode of arrival: ambulatory Limitations: no limitations History of Present Illness HPI narrative: 54-year-old with a history of hypertension,GERD, multiple hardware in the body here with the complaints of right upper quadrant pain for past 2 weeks. He denies any nausea or vomiting. No history of trauma. Denies any cough or shortness of breath. Patient states that pain is not related to any food . No previous history of gallbladder disease. Pertinent past history: none Onset (ago): week(s) (2) Pain Consistency: intermittent Location: RUQ Severity: moderate Quality: aching Radiation: none Migration to: no migration Exacerbating factors: nothing Relieving factors: nothing Associated symptoms: denies other symptoms Related Data Allergies Allergy/AdvReac Type Severity Reaction Status Date / Time No Known Allergies Allergy Unknown Verified 12/21/24 06:25 Review of Systems 2 Review of Systems: All systems reviewed & are unremarkable except as noted in HPI and below Constitutional: Constitutional: Reports no additional constitutional complaints Eyes: Eyes: Reports no additional eye complaints ENT: Reports system reviewed and no additional complaints, except as documented Cardiovascular: Cardiovascular: Reports no additional cardiovascular complaints Respiratory: Respiratory: Reports no additional respiratory complaints Gastrointestinal: Gastrointestinal: Reports as per HPI Musculoskeletal: Musculoskeletal: Reports no additional musculoskeletal complaints Endocrine: Endocrine: Reports no additional endocrine complaints Hematologic/Lymphatic: Hematologic/Lymphatic: Reports no additional hematologic/lymphatic complaints Allergic/Immunologic: Allergic/Immunologic: Reports no additional allergic/immunologic complaints Exam 2 Narrative: GENERAL: Well-appearing, well-nourished, and in no acute distress. HEAD: Normocephalic, atraumatic. EYES: PERRLA and EOMI. ENT: Nares clear, no rhinorrhea or epistaxis. Mucous membranes moist. NECK: Supple. CHEST: Clear to auscultation. No respiratory distress. HEART: Regular rate and rhythm. No murmur heard. Normal peripheral pulses. ABDOMEN: Soft, nontender, nondistended, normal active bowel sounds. EXTREMITIES: Normal range of motion. No edema. SKIN: Warm, dry, no rash. NEURO: No focal deficits. Alert and oriented x3. PSYCH: Normal mood and affect. Course Course Emergency Course: Patient still remained pain-free at this time. Informed him about his lab work, CT and ultrasound findings. Advised to continue his home medication, follow-up with his primary doctor Vital Signs Vital signs: Vital Signs Temperature 36.8 C 12/21/24 06:27 Pulse Rate 79 12/21/24 06:27 Respiratory Rate 18 12/21/24 06:27 Blood Pressure 158/95 H 12/21/24 06:27 Pulse Oximetry 97 12/21/24 06:27 Oxygen Delivery Room Air 12/21/24 06:27 Temperature 36.8 C 12/21/24 06:30 Pulse Rate 79 12/21/24 07:39 Respiratory Rate 17 12/21/24 07:39 Blood Pressure 164/93 H 12/21/24 07:39 Pulse Oximetry 94 12/21/24 07:39 Oxygen Delivery Room Air 12/21/24 06:27 MDM - Abdominal Pain Differential Diagnosis Differential diagnosis: Likely abdominal pain, calculus of kidney, constipation, pancreatitis and other (Gallbladder disease) Medical Records Attestation: I reviewed the patient's medical records. Lab Data Attestation: I reviewed the patient's lab results. 12/21/24 06:41 12/21/24 06:41 Labs: Lab Results 12/21/24 Range/Units 06:41 WBC 6.3 (4.5-10.0) K/mm3 RBC 6.09 (4.6-6.20) M/mm3 Hgb 18.3 H (14.0-18.0) g/dL Hct 53.6 H (42.0-52.0) % MCV 88.0 (80-100) fl MCH 30.0 (26-34) pg MCHC 34.1 (32-36) g/dl RDW 13.2 (11.5-14.5) % Plt Count 217 (150-375) k/mm3 MPV 9.2 (7.4-10.4) fl Immature Gran % (Auto) 0.5 (0-0.5) % Neut % (Auto) 62.7 (45.5-73.1) % Lymph % (Auto) 26.3 (18.3-44.2) % [place] % (Auto) 8.7 H (2.6-8.5) % Eos % (Auto) 1.3 (0-4.4) % Baso % (Auto) 0.5 (0.2-1.2) % Lymph # (Auto) 1.66 (0.9-3.2) K/mm3 [place] # (Auto) 0.6 (0.1-0.6) K/mm3 Eos # (Auto) 0.1 (0-0.3) K/mm3 Baso # (Auto) 0.0 (0.0-0.1) K/mm3 Abs Immat Gran (auto) 0.03 (0.00-0.031) K/mm3 Absolute Neuts (auto) 4.0 (1.3-6.7) K/mm3 Absolute Nucleated RBC 0.000 (0.0-0.012) K/mm3 Nucleated RBC % 0.0 (0.0-0.2) % Sodium 133 L (137-145) mmol/L Potassium 3.9 (3.4-5.0) mmol/L Chloride 98 (98-107) mmol/L Carbon Dioxide 29 (22-30) mmol/L Anion Gap 6 (4-12) mmol/L BUN 22 H (9-20) mg/dL Creatinine 0.99 (0.7-1.3) mg/dL Estim Creat Clear Calc 91 ml/min Estimated GFR > 60 (59 - ) Glucose 114 H (65-110) mg/dL Calcium 9.2 (8.4-10.2) mg/dL Total Bilirubin 0.9 (0.2-1.3) mg/dL AST 45 (17-59) U/L ALT 49 (6-50) U/L Alkaline Phosphatase 69 (38-126) U/L Total Protein 7.8 (6.3-8.2) g/dL Albumin 4.5 (3.5-5.1) g/dL Lipase 265 (23-300) U/L Urine Color Yellow (Yellow) Urine Appearance Clear (Clear) Urine pH 7.0 (5.0-9.0) Ur Specific Lequire 1.024 (1.001-1.035) Urine Protein Trace (Negative) mg/dL Urine Glucose (UA) Negative (Negative) mg/dL Urine Ketones Negative (Negative) mg/dL Ur Blood (Man) Negative (Negative) Urine Nitrate Negative (Negative) Urine Bilirubin Negative (Negative) Urine Urobilinogen 1.0 (<2.0) mg/dL Leukocyte Esterase Rfl Negative (Negative) EMMA/UL Urine RBC 0-2 (0-2) /hpf Urine WBC 0-5 (0-3) /hpf Ur Squamous Epith Cells None seen (Few) /hpf Urine Bacteria None seen /hpf Urine Casts 0-2 Imaging Data Radiologist's impression: ITS Impressions Abdomen/Pelvis CT 12/21/24 07:36 IMPRESSION: 1. No etiology for the patient's symptoms. Abdomen Ultrasound 12/21/24 09:04 IMPRESSION: 1. Normal right upper quadrant ultrasound. Discharge Plan Discharge Clinical Impression: Abdominal pain, RUQ Patient Disposition: Home Condition: Stable Instructions: Abdominal Pain (ED) Patient Language: Chinese Follow-up/Referrals: Lyly,Huseyin Jarvis MD [Primary Care Provider, Unknown] Time of Disposition: 08:12
[2024-12-21 09:31] VITALS: BP 126/92; PULSE 77; RESP 18; O2SAT 95
--- NOTE | 2024-12-21 10:09 | PC.NURSE ---
pt frustrated about discharge with no answers and in pain. this RN asked pt if he would like to speak to the MD again, pt decline. this RN educated pt about ruling our acute emergencies
== END 2024-12-21 10:10 | disposition home or self-care (01) ==
PROVIDERS: Student in an Organized Health Care Education/Training Program; Emergency Provider Family Medicine; PCP Family Medicine
DX: R10.11 Right upper quadrant pain (principal); I10 Essential (primary) hypertension
CPT/HCPCS: 36415; 74177; 76705; 80053; 81001; 83690; 85025; 99284; Q9967